=== PATIENT | male | born 1960 | race Caucasian/White ===

== ENCOUNTER → 2017-01-15 | Outpatient (CLI) | payer OTHER ==
[~2017-01-15] MED LIST: ALLO300T PO; AMLO1CAP12 PO; ATOR10TA9 PO; BUPR100T11 PO; CLOP75TA22 PO; IBUP800T PO; METO25TA91 PO; OMEG1CAP2 PO; TICA90TA PO; TRIA1TAB3 PO; ZOLP10TA PO
== END | disposition home or self-care (01) ==
LOC: CFH 09:05
PROVIDERS: ATTEND Nurse Practitioner Family
DX: I25.10 Atherosclerotic heart disease of native coronary artery without angina pectoris (principal)
CPT/HCPCS: 78452; 93017; A9502

== ENCOUNTER → 2017-01-16 | Outpatient (CLI) | payer OTHER ==
[~2017-01-16] MED LIST changes: +OMNIPAQUE 350 MG/ML, 100ML BOTTLE ONE; +REGADENOSON 0.4 MG/5 ML SYRINGE ONE
== END | disposition home or self-care (01) ==
LOC: CFH 10:54
PROVIDERS: ATTEND Nurse Practitioner Family
DX: I25.10 Atherosclerotic heart disease of native coronary artery without angina pectoris (principal); I71.2 Thoracic aortic aneurysm, without rupture
CPT/HCPCS: 71275; Q9967; J2785

== ENCOUNTER 2017-05-15 10:03 | Emergency (ER) | payer BC, OTHER ==
[~2017-05-15] VITALS: Ht 185.4 cm; Wt 132.0 kg
[~2017-05-15 10:03] MED LIST changes: -OMNIPAQUE 350 MG/ML, 100ML BOTTLE ONE; -REGADENOSON 0.4 MG/5 ML SYRINGE ONE
[2017-05-15] MEDS ORDERED: KETOROLAC 30 MG/1 ML ONE (10:26)
[2017-05-15] MEDS ORDERED: OXYcodone/APAP 5/325MG TABLET ONE (10:27)
[2017-05-15] MEDS ORDERED: DIAZEPAM 5 MG TABLET ONE (10:29)
[2017-05-15] MEDS ORDERED: DIAZEPAM 5 MG TABLET PO ONE (10:30)
[2017-05-15] MEDS ORDERED: KETOROLAC 30 MG/1 ML IM ONE (10:30)
[2017-05-15] MEDS ORDERED: OXYcodone/APAP 5/325MG TABLET PO ONE (10:30)
[2017-05-15] MEDS ORDERED: SODIUM CHLORIDE FLUSH 10ML SYR IVF ONE (13:00)
[2017-05-15] MEDS ORDERED: HYDROmorphone 1 MG/ML, 1ML IVPush PRN (13:00)
[2017-05-15] MEDS ORDERED: DIAZEPAM 5 MG/ML, 2ML IVPush ONE (13:00)
[2017-05-15] MEDS ORDERED: HYDROmorphone 1 MG/ML, 1ML ONE (13:08)
[2017-05-15] MEDS ORDERED: DIAZEPAM 5 MG/ML, 2ML ONE (13:09)
[2017-05-15 14:44] VITALS: BP 122/78
== END 2017-05-15 14:46 | disposition home or self-care (01) ==
LOC: ED 11:40
DX: S39.012A Strain of muscle, fascia and tendon of lower back, initial encounter (principal); I10 Essential (primary) hypertension; E78.5 Hyperlipidemia, unspecified; I49.1 Atrial premature depolarization; E11.9 Type 2 diabetes mellitus without complications; X58.XXXA Exposure to other specified factors, initial encounter; Y93.89 Activity, other specified; Y92.89 Other specified places as the place of occurrence of the external cause; Y99.8 Other external cause status
CPT/HCPCS: 72110; 96374; 96375; 99284; J1170; J3360

== ENCOUNTER → 2018-05-06 | Outpatient (CLI) | payer BC ==
[~2018-05-06] MED LIST changes: -CLOP75TA22 PO; +CLOP75TA52 PO; +IBUP-1223 PO; -IBUP800T PO; +OMNIPAQUE 350 MG/ML, 100ML BOTTLE ONE
[2018-05-06 12:55] LABS: CREATININE 0.87 mg/dL (0.7-1.3)
== END | disposition home or self-care (01) ==
LOC: RAD 11:52
PROVIDERS: ATTEND Nurse Practitioner Family
DX: I70.0 Atherosclerosis of aorta (principal); I11.9 Hypertensive heart disease without heart failure; I25.10 Atherosclerotic heart disease of native coronary artery without angina pectoris; I71.2 Thoracic aortic aneurysm, without rupture; I35.0 Nonrheumatic aortic (valve) stenosis; E78.5 Hyperlipidemia, unspecified; R91.1 Solitary pulmonary nodule
CPT/HCPCS: 0399T; 36415; 71275; 82565; 93306; Q9967

== ENCOUNTER → 2018-06-02 | Outpatient (CLI) | payer BC ==
[~2018-06-02] MED LIST changes: -OMNIPAQUE 350 MG/ML, 100ML BOTTLE ONE
== END | disposition home or self-care (01) ==
LOC: CFH 07:55
PROVIDERS: ATTEND Nurse Practitioner Family
DX: R94.39 Abnormal result of other cardiovascular function study (principal); I25.10 Atherosclerotic heart disease of native coronary artery without angina pectoris; I71.2 Thoracic aortic aneurysm, without rupture
CPT/HCPCS: 78452; 93017; A9502

== ENCOUNTER 2018-07-03 11:29 | Day surgery (SDC) | payer BC ==
[~2018-07-03] VITALS: Ht 185.4 cm; Wt 134.1 kg
[2018-07-03] MEDS ORDERED: SODIUM CHLORIDE 0.9% 1,000 ML IV ONE (12:52)
[2018-07-03] MEDS ORDERED: CLOPIDOGREL 75 MG TABLET ONE (12:58)
[2018-07-03] MEDS ORDERED: CLOPIDOGREL 75 MG TABLET PO SCH (13:00)
[2018-07-03] MEDS ORDERED: PRAV40TA2 PO (13:18)
[2018-07-03] MEDS ORDERED: BUPR300T4 PO (13:18)
[2018-07-03] MEDS ORDERED: FLUT9.9S INH (13:18)
[2018-07-03] MEDS ORDERED: METF500T17 PO (13:20)
[2018-07-03] MEDS ORDERED: ISOS30TA8 PO (13:20)
[2018-07-03 13:38] LABS: BASOPHILS # (AUTO) 0.02 x10^3/uL (0-0.1); BASOPHILS % (AUTO) 0 % (0-1); EOSINOPHILS # (AUTO) 0.23 x10^3/uL (0-0.4); EOSINOPHILS % (AUTO) 4 % (1-7); LYMPHOCYTES # (AUTO) 1.91 x10^3/uL (1-3.4); LYMPHOCYTES % (AUTO) 29 % (22-44); MD NO; MEAN CORPUSCULAR HEMOGLOBIN 28.8 pg (27.5-34.5); MEAN CORPUSCULAR HGB CONC 33.7 g/dL (33.2-36.2); MEAN CORPUSCULAR VOLUME 85.3 fL (81-97); MEAN PLATELET VOLUME 8.6 fL (7.4-10.4); MONOCYTES # (AUTO) 0.54 x10^3/uL (0.2-0.8); MONOCYTES % (AUTO) 8 % (2-9); NEUTROPHILS # (AUTO) 3.97 x10^3/uL (1.8-6.8); NEUTROPHILS % (AUTO) 60 % (42-75); PLATELET COUNT 225 x10^3/uL (130-400); RED BLOOD COUNT 5.39 x10^6/uL (4.38-5.82); RED CELL DISTRIBUTION WIDTH 13.9 % (9.4-14.8)
[2018-07-03 13:46] LABS: ANION GAP 11 mmol/L (5-15); CALCIUM 8.7 mg/dL (8.5-10.1); CHLORIDE 105 mmol/L (98-107); CREATININE 0.83 mg/dL (0.7-1.3)
[2018-07-03] MEDS ORDERED: FENTANYL PF 100 MCG/2ML ONE (14:09)
[2018-07-03] MEDS ORDERED: TICAGRELOR 90 MG TABLET ONE (14:09)
[2018-07-03] MEDS ORDERED: VERAPAMIL 2.5 MG/ML, 2ML ONE (14:09)
[2018-07-03] MEDS ORDERED: MIDAZOLAM 1 MG/ML, 5ML ONE (14:09)
[2018-07-03] MEDS ORDERED: HEPARIN 1,000 UNITS/ML, 10ML ONE (14:10)
[2018-07-03] MEDS ORDERED: BIVALIRUDIN 250 MG ONE (14:10)
[2018-07-03] MEDS ORDERED: SODIUM CHLORIDE 0.9% 1,000 ML IV SCH (15:02)
== END 2018-07-03 17:11 | disposition home or self-care (01) ==
LOC: CACL 11:29
PROVIDERS: ATTEND Internal Medicine Cardiovascular Disease
DX: I25.10 Atherosclerotic heart disease of native coronary artery without angina pectoris (principal); I10 Essential (primary) hypertension; I71.2 Thoracic aortic aneurysm, without rupture; M10.9 Gout, unspecified; F32.9 Major depressive disorder, single episode, unspecified; E78.2 Mixed hyperlipidemia; E66.9 Obesity, unspecified; Z79.899 Other long term (current) drug therapy; Z68.30 Body mass index [BMI] 30.0-30.9, adult
CPT/HCPCS: 36415; 80048; 85025; 93458; C1769; C1894; J1644; J2250; J3010; Q9967; J0583

== ENCOUNTER → 2019-02-05 | Outpatient (CLI) | payer BC ==
[~2019-02-05] MED LIST changes: +BUPR300T4 PO; +FLUT9.9S INH; +ISOS30TA8 PO; +METF500T17 PO; +PRAV40TA2 PO
== END | disposition home or self-care (01) ==
LOC: CFH 09:23
PROVIDERS: ATTEND Internal Medicine Cardiovascular Disease
DX: I25.10 Atherosclerotic heart disease of native coronary artery without angina pectoris (principal); I10 Essential (primary) hypertension; I35.0 Nonrheumatic aortic (valve) stenosis; Z79.02 Long term (current) use of antithrombotics/antiplatelets
CPT/HCPCS: 71046

== ENCOUNTER → 2019-02-05 | Outpatient (CLI) | payer BC | END | disposition home or self-care (01) | LOC: CVU 07:09 | PROVIDERS: ATTEND Internal Medicine Cardiovascular Disease | DX: I35.1 Nonrheumatic aortic (valve) insufficiency (principal); I10 Essential (primary) hypertension; E78.5 Hyperlipidemia, unspecified | CPT/HCPCS: 93306; 93978 ==

== ENCOUNTER 2019-05-21 13:53 | Outpatient (CLI) | payer BC | END 2019-05-21 23:59 | disposition home or self-care (01) | LOC: CVU 13:53 | PROVIDERS: ATTEND Nurse Practitioner Family | DX: I73.9 Peripheral vascular disease, unspecified (principal); I25.10 Atherosclerotic heart disease of native coronary artery without angina pectoris; E11.9 Type 2 diabetes mellitus without complications; I10 Essential (primary) hypertension; E78.5 Hyperlipidemia, unspecified | CPT/HCPCS: 93922 ==

== ENCOUNTER → 2020-08-18 | Outpatient (CLI) | payer BC ==
[~2020-08-18] MED LIST changes: -AMLO1CAP12 PO; +AMLO1CAP13 PO; -BUPR300T4 PO; +BUPR300T94 PO
== END | disposition home or self-care (01) ==
LOC: CVU 13:01
PROVIDERS: ATTEND Internal Medicine Cardiovascular Disease
DX: I06.8 Other rheumatic aortic valve diseases (principal)
CPT/HCPCS: 93306; 93356

== ENCOUNTER → 2021-07-03 | Outpatient (CLI) | payer BC | END | disposition home or self-care (01) | LOC: CVU 15:33 | PROVIDERS: ATTEND Internal Medicine Cardiovascular Disease | DX: I35.1 Nonrheumatic aortic (valve) insufficiency (principal); I25.10 Atherosclerotic heart disease of native coronary artery without angina pectoris; I11.9 Hypertensive heart disease without heart failure; E78.5 Hyperlipidemia, unspecified; I71.2 Thoracic aortic aneurysm, without rupture | CPT/HCPCS: 93306 ==